=== PATIENT | male | born 2000 | race Caucasian/White ===

== ENCOUNTER 2023-10-30 13:26 | Emergency (ER) | payer OTHER, SELFPAY ==
--- NOTE | ~2023-10-30 | XR_ITS ---
XR knee LT min 4V Ordering provider: BART Manning History: . pain and crepitus to left knee with swelling . Comparison: None. FINDINGS: BONES: No acute fracture or dislocation. JOINT SPACES: Normal. SOFT TISSUES: Normal. IMPRESSION: No acute osseous abnormality left knee. Reviewed, dictated and finalized at location A.
--- NOTE | 2023-10-30 13:30 | ED.GENADULT ---
HPI - General Adult General Chief complaint: Extremity Injury, Lower Stated complaint: lt knee pain Time Seen by Provider: 10/30/23 13:30 Source: patient Mode of arrival: ambulatory Limitations: no limitations History of Present Illness HPI narrative: 23-year-old male patient presents to the [facility] with complaints of left knee pain. Patient denies any falls or trauma to left knee but states that he did move yesterday so he was doing a lot of lifting of boxes and things. Patient states he woke up this morning and was barely able to stand on his left knee. Patient states he has not been able to extend the knee fully due to pain. Patient states he did wear a brace and did take some ibuprofen today for pain. Related Data Home Medications Medication Instructions Recorded Confirmed paroxetine HCl 20 mg tablet 20 mg PO BID 10/30/23 10/30/23 Allergies Allergy/AdvReac Type Severity Reaction Status Date / Time morphine Allergy Unknown UNKNOWN Verified 10/30/23 14:00 Review of Systems Review of Systems: CONSTITUTIONAL: Denies fever, chills, or sweats. EYES: Denies visual changes, redness, or discharge. ENT: Denies rhinorrhea, congestion, sore throat, or otalgia. CARDIOVASCULAR: Denies chest pain, palpitations, or edema. RESPIRATORY: Denies cough or dyspnea. GASTROINTESTINAL: Denies abdominal pain, nausea, vomiting, or diarrhea. GENITOURINARY: Denies dysuria or hematuria. SKIN: Denies rash or itching. MUSCULOSKELETAL: Denies back pain, joint pain, or myalgia. Positive left knee pain NEUROLOGIC: Denies headache, numbness, or weakness. PSYCHIATRIC: Denies anxiety or depression. [facility] Past Medical History Medical History (Updated 10/30/23 @ 14:23 by BART Manning) No significant past medical history Comments At the time of my signature I agree with nursing past medical history, surgical, social, and family history. There is no relevant family history pertinent to the presenting complaint. Exam Narrative: GENERAL: Well-appearing, well-nourished, and in no acute distress. HEAD: Normocephalic, atraumatic. EYES: PERRLA and EOMI. ENT: Nares clear, no rhinorrhea or epistaxis. Mucous membranes moist. NECK: Supple. No lymphadenopathy CHEST: Clear to auscultation. No respiratory distress. HEART: Regular rate and rhythm. No murmur heard. Normal peripheral pulses. ABDOMEN: Soft, nontender, nondistended, normal active bowel sounds. EXTREMITIES:Patient is able to bear weight and ambulate with pain on left knee. No surface trauma, STS. slight obvious effusion. No overlying erythema or warmth. The L knee is without obvious asymmetry or deformity when compared to the R knee. Patient is able to do deep knee bend with symmetry, unable to fully extend knee without pain, normal internal and external rotation. crepitus is noted with passive range of motioning of bending and extending the left knee tenderness to palpation of the patella, positive effusion and ballottement. No tenderness over the infrapatellar tendon. No tenderness over the medial or lateral joint lone ot the medial or lateral tibial plateaus. no tenderness over the proximal fibular head. no tenderness, fullness, or mass of the popliteal fossa. No quadriceps tenderness. No laxity of the ACL, PCL, MCL, or LCL. No collateral ligament laxity to valgus or vargus stress. Negative manpreet/drawer sign. Negative Mike. Negative Apley compression and/or distraction. Distal motor and neurovascular status intact. SKIN: Warm, dry, no rash. NEURO: No focal deficits. Alert and oriented x3. Course Course Level of Care: Express Care Visit Vital Signs Vital signs: Vital Signs Temperature 36.9 C 10/30/23 13:42 Pulse Rate 61 10/30/23 13:42 Respiratory Rate 16 10/30/23 13:42 Blood Pressure 126/68 10/30/23 13:42 Pulse Oximetry 100 10/30/23 13:42 Oxygen Delivery Room Air 10/30/23 13:42 Temperature 36.9 C 10/30/23 13:42 Pulse Rate 61
[2023-10-30 13:42] VITALS: BP 126/68; PULSE 61; RESP 16; TEMP 36.9; O2SAT 100
== END 2023-10-30 14:24 | disposition home or self-care (01) ==
PROVIDERS: Emergency Provider Nurse Practitioner Family
DX: M25.462 Effusion, left knee (principal)
CPT/HCPCS: 73562; 73564; 99203; G0463

== ENCOUNTER 2023-12-24 10:48 | Emergency (ER) | payer OTHER, SELFPAY ==
--- NOTE | ~2023-12-24 | XR_ITS ---
EXAMINATION: XR foot LT min 3V DATE: 12/24/2023 11:08 INDICATION: Left foot pain TECHNIQUE: Dorsoplantar, two oblique and lateral views of the left foot were obtained. COMPARISON: None. FINDINGS: Alignment is normal. No fracture. Joint spaces are normal. No cortical erosions or periosteal reactio n. Soft tissues are unremarkable. No ankle joint effusion. IMPRESSION: 1. Negative left foot radiographs. Reviewed, dictated and finalized at location B.
--- NOTE | 2023-12-24 10:49 | ED.LOWEXIN ---
HPI - Extremity Injury (Lower) General Chief Complaint: Extremity Injury, Lower Stated Complaint: LT Ankle pain Time Seen by Provider: 12/24/23 10:49 Source: patient Mode of arrival: ambulatory Limitations: no limitations History of Present Illness HPI Narrative: Darrell is a 23-year-old male patient presenting to the clinic today with complaints of left foot pain that started yesterday. He reports no known injury to his foot. Was ambulating on concrete yesterday at work. Reports it is hurting to the medial, lateral, and dorsal foot with pain radiating up his leg. Pain is worse with movement and bearing weight. Denies any heel pain Related Data Home Medications Medication Instructions Recorded Confirmed paroxetine HCl 20 mg tablet 20 mg PO BID 10/30/23 12/24/23 Allergies Allergy/AdvReac Type Severity Reaction Status Date / Time morphine Allergy Unknown UNKNOWN Verified 12/24/23 10:50 Review of Systems Review of Systems: Pertinent positives per HPI. Patient denies any fever, chills, rash, headache, visual changes, dizziness, cough, runny nose, sore throat, shortness of breath, chest pain, palpitations, nausea, vomiting, diarrhea, constipation, abdominal pain, or any urinary issues. [facility] Past Medical History Medical History No significant past medical history Comments At the time of my signature, I reviewed and agree with the nursing past medical, surgical, social, and family history. There is no relevant family history pertinent to the patient complaint. Exam Narrative: General: Well-developed, well nourished, in no apparent distress Head: Normocephalic, atraumatic. Cardio: Regular rate and rhythm, s1 and s2 normal, no murmur appreciated. Resp: Clear to auscultation bilaterally, no rhonchi, rales, wheezing or rubs. Musculoskeletal: No deformity, tender mostly to the lateral foot however the it is some pain to the dorsal and medial foot as well to palpation, no tenderness to the heel or Achilles tendon on palpation, range of motion limited due to pain, muscle strength strong and equal, peripheral pulse strong, no edema, no cyanosis, limping gait and station Course Course Emergency Course: Portions of this record may have been created with voice recognition software. Level of Care: Express Care Visit Vital Signs Vital signs: Vital Signs Temperature 36.0 C L 12/24/23 10:57 Pulse Rate 102 H 12/24/23 10:57 Respiratory Rate 18 12/24/23 10:57 Blood Pressure 122/73 12/24/23 10:57 Pulse Oximetry 100 12/24/23 10:57 Oxygen Delivery Room Air 12/24/23 10:57 Temperature 36.0 C L 12/24/23 10:57 Pulse Rate 102 H 12/24/23 10:57 Respiratory Rate 18 12/24/23 10:57 Blood Pressure 122/73 12/24/23 10:57 Pulse Oximetry 100 12/24/23 10:57 Oxygen Delivery Room Air 12/24/23 10:57 Vital signs reviewed MDM - Extremity Injury (Lower) MDM Narrative Medical decision making narrative: At the time of visit patient is resting comfortably on the exam table. Patient appears to be nontoxic. Diagnostics: X-ray was negative for any acute osseous process. Plan: I suspect patient may have inflammation to the tendons/ligaments in the left foot. Prescription for naproxen was sent to the pharmacy and Dillon wrap was given. Work note was given for today. Supportive measures were discussed with the patient and they voiced understanding discharge instructions and agrees to treatment plan. Return precautions reviewed Differential Diagnosis Differential diagnosis: Likely ankle sprain and strain, ankle fracture and other (Foot sprain, foot fracture, gout, arthritis, plantar fasciitis, bone spurs) Imaging Data Radiologist's impression: ITS Impressions Foot X-Ray 12/24/23 11:10 IMPRESSION: 1. Negative left foot radiographs. Discharge Plan Discharge Clinical Impression: Acute pain of left foot Patient
[2023-12-24 10:57] VITALS: BP 122/73; PULSE 102; RESP 18; TEMP 36; O2SAT 100
== END 2023-12-24 11:28 | disposition home or self-care (01) ==
LOC: EXPTROY 10:51
PROVIDERS: Emergency Provider Nurse Practitioner Family
DX: M79.672 Pain in left foot (principal)
CPT/HCPCS: 73630; 99213; G0463